=== PATIENT | female | born 1965 | race American Indian/Alaskan Native ===

== ENCOUNTER 2019-05-09 00:12 | Inpatient (IN) | payer OTHER ==
--- NOTE | 2019-05-09 00:21 | Emergency Department Report ---
ED Neuro Deficit HPI - General Stated Complaint: STROKE Time Seen by Provider: 05/09/19 00:15 - History of Present Illness Initial Comments: Patient is 53 years old female with history of hypertension. Patient presented to the ER via EMS for evaluation of possible stroke. Patient stated that she went to bed at 10:00 and around 10:30 when she tried to change her position she felt however left side is heavy and then noticed that she is having difficulty finding words and speaking. Patient immediately examined by me on EMS stretcher and code stroke initiated. Patient immediately moved to CT scan suite for emergent CT bran. Telemetry neurology immediately consulted. -: Sudden Location: speech, left arm, left leg Presenting Symptoms: Present: Weak/Paralyzed One Side, Unable to Speak Clearly History of same: No Place: home - Related Data Home Medications: Previous Rx's Medication Instructions Recorded Last Taken Type Aspirin 81 mg PO QDAY #30 tablet 05/10/19 Unknown Rx AtorvaSTATin [Lipitor] 40 mg PO QHS #30 tablet 05/10/19 Unknown Rx Bisacodyl [Dulcolax] 5 mg PO DAILY PRN #30 tab 05/10/19 Unknown Rx Losartan [Cozaar] 50 mg PO QDAY #30 tablet 05/10/19 Unknown Rx Allergies/Adverse Reactions: Allergies Allergy/AdvReac Type Severity Reaction Status Date / Time cephalexin [From Keflex] Allergy Unknown Hives Verified 05/10/19 04:54 ED Review of Systems ROS: Stated complaint: STROKE Other details as noted in HPI Comment: All other systems reviewed and negative Constitutional: denies: chills, fever Respiratory: denies: cough, shortness of breath, SOB with exertion Cardiovascular: denies: chest pain, palpitations Gastrointestinal: denies: abdominal pain, nausea, vomiting, diarrhea, constipation, hematemesis, melena, hematochezia Musculoskeletal: denies: back pain Neurological: weakness, numbness. denies: headache, paresthesias, confusion, abnormal gait ED Past Medical Hx - Medications Home Medications: Home Medications Medication Instructions Recorded Confirmed Last Taken Type Aspirin 81 mg PO QDAY #30 tablet 05/10/19 Unknown Rx AtorvaSTATin [Lipitor] 40 mg PO QHS #30 tablet 05/10/19 Unknown Rx Bisacodyl [Dulcolax] 5 mg PO DAILY PRN #30 tab 05/10/19 Unknown Rx Losartan [Cozaar] 50 mg PO QDAY #30 tablet 05/10/19 Unknown Rx ED Neuro Physical Exam - General General appearance: alert, in no apparent distress Suspected Stroke: Yes - Head Head exam: Present: atraumatic, normocephalic, normal inspection - Eye Eye exam: Present: normal appearance, PERRL - ENT ENT exam: Present: normal exam, normal orophraynx, mucous membranes moist - Neck Neck exam: Present: normal inspection, full ROM. Absent: tenderness, meningismus, lymphadenopathy, thyromegaly - Respiratory Respiratory exam: Present: normal lung sounds bilaterally - Cardiovascular Cardiovascular Exam: Present: regular rate, normal rhythm, normal heart sounds - GI/Abdominal GI/Abdominal exam: Present: soft, normal bowel sounds. Absent: distended, tenderness, guarding, rebound, rigid, organomegaly, mass, bruit, pulsatile mass, hernia - Extremities Exam Extremities exam: Present: normal inspection, full ROM, normal capillary refill. Absent: pedal edema, calf tenderness - Back Exam Back exam: Present: normal inspection, full ROM. Absent: CVA tenderness (R), CVA tenderness (L), paraspinal tenderness, vertebral tenderness - Neurological Exam Neurological exam: Present: alert, oriented X3 - NIHSS Assessment Interval: Baseline 1a. Level of Consciousness: alert/keenly responsive 1b. LOC Questions: answers both correctly 1c. LOC Commands: performs tasks correctly 2. Best Gaze: normal 3. Visual: no visual loss 4. Facial Palsy: minor paralysis 5b. Motor Arm Right: no drift 5a. Motor Arm Left: drift 6a. Motor Leg Left: drift 6b. Motor Leg Right: no drift 7. Limb Ataxia: absent 8. Sensory: mild/moderate sensory loss 9. Best Language: mild/moderate aphasia 10. Dysarthria: mild/moderate dysarthria 11. Extinction/Inattention: no abnormality Total Score: 6 Stroke Severity: Moderate Stroke - Psychiatric Psychiatric exam: Present: normal mood - Skin Skin exam: Present: warm, intact, normal color ED Course Vital Signs 05/09/19 05/09/19 05/09/19 00:19 00:43 00:45 Temperature 98.1 F Pulse Rate 87 86 Respiratory 18 14 12 Rate Blood Pressure 197/121 Blood Pressure [Left] O2 Sat by Pulse 100 Oximetry 05/09/19 05/09/19 05/09/19 00:47 00:49 00:51 Temperature Pulse Rate 84 83 80 Respiratory 19 13 16 Rate Blood Pressure Blood Pressure [Left] O2 Sat by Pulse Oximetry 05/09/19 05/09/19 05/09/19 01:00 01:15 01:30 Temperature Pulse Rate 84 76 Respiratory 25 H 18 19 Rate Blood Pressure 164/101 164/101 127/83 Blood Pressure [Left] O2 Sat by Pulse Oximetry 05/09/19 05/09/19 05/09/19 01:45 02:00 02:15 Temperature Pulse Rate 85 Respiratory 18 11 L 19 Rate Blood Pressure 95/73 132/90 136/89 Blood Pressure [Left] O2 Sat by Pulse Oximetry 05/09/19 05/09/19 05/09/19 02:30 02:45 03:00 Temperature Pulse Rate 79 76 75 Respiratory 12 19 18 Rate Blood Pressure 136/89 147/92 137/80 Blood Pressure [Left] O2 Sat by Pulse Oximetry 05/09/19 05/09/19 05/09/19 03:04 03:15 03:30 Temperature Pulse Rate 76 77 Respiratory 16 17 17 Rate Blood Pressure 123/76 123/79 Blood Pressure [Left] O2 Sat by Pulse Oximetry 05/09/19 05/09/19 05/09/19 03:45 04:00 04:15 Temperature Pulse Rate 86 79 77 Respiratory 16 15 12 Rate Blood Pressure 137/104 128/85 132/88 Blood Pressure [Left] O2 Sat by Pulse Oximetry 05/09/19 05/09/19 05/09/19 04:30 04:45 05:00 Temperature Pulse Rate Respiratory 20 16 15 Rate Blood Pressure 127/79 124/73 125/71 Blood Pressure [Left] O2 Sat by Pulse Oximetry 05/09/19 05/09/19 05/09/19 05:15 05:30 05:45 Temperature Pulse Rate Respiratory 20 16 23 Rate Blood Pressure 115/72 112/72 122/73 Blood Pressure [Left] O2 Sat by Pulse Oximetry 05/09/19 05/09/19 05/09/19 06:00 06:15 06:31 Temperature Pulse Rate Respiratory 15 35 H 16 Rate Blood Pressure 138/78 120/81 164/114 Blood Pressure [Left] O2 Sat by Pulse Oximetry 05/09/19 05/09/19 05/09/19 06:41 06:51 07:01 Temperature Pulse Rate Respiratory 13 16 13 Rate Blood Pressure 164/114 161/126 169/104 Blood Pressure [Left] O2 Sat by Pulse Oximetry 05/09/19 05/09/19 05/09/19 07:11 07:21 07:43 Temperature Pulse Rate Respiratory 18 9 L Rate Blood Pressure 169/104 154/110 135/114 Blood Pressure [Left] O2 Sat by Pulse Oximetry 05/09/19 05/09/19 05/09/19 08:57 09:00 09:15 Temperature Pulse Rate Respiratory 16 Rate Blood Pressure 166/91 153/88 150/95 Blood Pressure 150/95 [Left] O2 Sat by Pulse 97 Oximetry 05/09/19 05/09/19 05/09/19 09:30 09:45 10:00 Temperature Pulse Rate Respiratory Rate Blood Pressure 148/105 169/98 143/74 Blood Pressure [Left] O2 Sat by Pulse Oximetry 05/09/19 05/09/19 05/09/19 10:11 10:15 10:30 Temperature Pulse Rate 75 Respiratory 16 Rate Blood Pressure 143/74 144/74 148/78 Blood Pressure 148/78 [Left] O2 Sat by Pulse 98 Oximetry 05/09/19 05/09/19 05/09/19 10:45 11:00 11:15 Temperature Pulse Rate Respiratory Rate Blood Pressure 150/74 154/100 133/109 Blood Pressure [Left] O2 Sat by Pulse Oximetry 05/09/19 05/09/19 05/09/19 12:18 12:21 12:24 Temperature Pulse Rate 77 66 68 Respiratory 16 14 Rate Blood Pressure 167/112 167/112 Blood Pressure 166/97 [Left] O2 Sat by Pulse 95 Oximetry 05/09/19 05/09/19 05/09/19 12:30 12:41 12:51 Temperature Pulse Rate 65 66 79 Respiratory 19 19 21 Rate Blood Pressure 160/98 160/98 173/98 Blood Pressure [Left] O2 Sat by Pulse Oximetry 05/09/19 05/09/19 05/09/19 13:01 13:11 13:12 Temperature Pulse Rate 73 67 Respiratory 12 17 Rate Blood Pressure 168/115 168/115 Blood Pressure 168/115 [Left] O2 Sat by Pulse Oximetry 05/09/19 05/09/19 05/09/19 13:21 13:31 13:41 Temperature Pulse Rate 74 58 L 62 Respiratory 16 16 22 Rate Blood Pressure 177/120 177/120 168/129 Blood Pressure [Left] O2 Sat by Pulse Oximetry 05/09/19 05/09/19 05/09/19 13:51 14:01 14:11 Temperature Pulse Rate 56 L 63 72 Respiratory 21 15 26 H Rate Blood Pressure 172/96 154/127 154/127 Blood Pressure [Left] O2 Sat by Pulse Oximetry - Lab Data Result diagrams: 05/09/19 00:45 05/09/19 00:45 Lab Results 05/09/19 05/09/19 05/09/19 Range/Units 00:45 00:45 00:45 WBC 5.1 (4.5-11.0) K/mm3 RBC 4.82 (3.65-5.03) M/mm3 Hgb 16.0 H (10.1-14.3) gm/dl Hct 46.4 H (30.3-42.9) % MCV 96 (79-97) fl MCH 33 H (28-32) pg MCHC 35 H (30-34) % RDW 13.4 (13.2-15.2) % Plt Count 253 (140-440) K/mm3 Lymph % (Auto) 41.9 H (13.4-35.0) % [place] % (Auto) 7.6 H (0.0-7.3) % Eos % (Auto) 2.3 (0.0-4.3) % Baso % (Auto) 0.7 (0.0-1.8) % Lymph # 2.1 (1.2-5.4) K/mm3 [place] # 0.4 (0.0-0.8) K/mm3 Eos # 0.1 (0.0-0.4) K/mm3 Baso # 0.0 (0.0-0.1) K/mm3 Seg Neutrophils % 47.5 (40.0-70.0) % Seg Neutrophils # 2.4 (1.8-7.7) K/mm3 PT 12.3 (12.2-14.9) Sec. INR 0.94 (0.87-1.13) APTT 27.5 (24.2-36.6) Sec. Thrombin Time 16.2 (15.1-19.6) Sec. Sodium 141 (137-145) mmol/L Potassium 3.8 (3.6-5.0) mmol/L Chloride 102.3 (98-107) mmol/L Carbon Dioxide 24 (22-30) mmol/L Anion Gap 19 mmol/L BUN 7 (7-17) mg/dL Creatinine 0.6 L (0.7-1.2) mg/dL Estimated GFR > 60 ml/min BUN/Creatinine Ratio 12 % Glucose 104 H (65-100) mg/dL Calcium 9.3 (8.4-10.2) mg/dL Total Creatine Kinase 140 H (30-135) units/L CK-MB (CK-2) 2.5 (0.0-4.0) ng/mL CK-MB (CK-2) Rel Index 1.7 (0-4) Troponin T < 0.010 (0.00-0.029) ng/mL Triglycerides (2-149) mg/dL Cholesterol (50-199) mg/dL LDL Cholesterol Direct (50-130) mg/dL HDL Cholesterol (40-59) mg/dL Cholesterol/HDL Ratio % Urine Color (Yellow) Urine Turbidity (Clear) Urine pH (5.0-7.0) Ur Specific [place] (1.003-1.030) Urine Protein (Negative) mg/dL Urine Glucose (UA) (Negative) mg/dL Urine Ketones (Negative) mg/dL Urine Blood (Negative) Urine Nitrite (Negative) Urine Bilirubin (Negative) Urine Urobilinogen (<2.0) mg/dL Ur Leukocyte Esterase (Negative) Urine WBC (Auto) (0.0-6.0) /HPF Urine RBC (Auto) (0.0-6.0) /HPF U Epithel Cells (Auto) (0-13.0) /HPF Urine Mucus /HPF Urine Opiates Screen Urine Methadone Screen Ur Barbiturates Screen Ur Phencyclidine Scrn Ur Amphetamines Screen U Benzodiazepines Scrn Urine Cocaine Screen U Marijuana (THC) Screen Drugs of Abuse Note 05/09/19 05/09/19 05/09/19 Range/Units 00:45 01:20 01:20 WBC (4.5-11.0) K/mm3 RBC (3.65-5.03) M/mm3 Hgb (10.1-14.3) gm/dl Hct (30.3-42.9) % MCV (79-97) fl MCH (28-32) pg MCHC (30-34) % RDW (13.2-15.2) % Plt Count (140-440) K/mm3 Lymph % (Auto) (13.4-35.0) % [place] % (Auto) (0.0-7.3) % Eos % (Auto) (0.0-4.3) % Baso % (Auto) (0.0-1.8) % Lymph # (1.2-5.4) K/mm3 [place] # (0.0-0.8) K/mm3 Eos # (0.0-0.4) K/mm3 Baso # (0.0-0.1) K/mm3 Seg Neutrophils % (40.0-70.0) % Seg Neutrophils # (1.8-7.7) K/mm3 PT (12.2-14.9) Sec. INR (0.87-1.13) APTT (24.2-36.6) Sec. Thrombin Time (15.1-19.6) Sec. Sodium (137-145) mmol/L Potassium (3.6-5.0) mmol/L Chloride (98-107) mmol/L Carbon Dioxide (22-30) mmol/L Anion Gap mmol/L BUN (7-17) mg/dL Creatinine (0.7-1.2) mg/dL Estimated GFR ml/min BUN/Creatinine Ratio % Glucose (65-100) mg/dL Calcium (8.4-10.2) mg/dL Total Creatine Kinase (30-135) units/L CK-MB (CK-2) (0.0-4.0) ng/mL CK-MB (CK-2) Rel Index (0-4) Troponin T (0.00-0.029) ng/mL Triglycerides 100 (2-149) mg/dL Cholesterol 196 (50-199) mg/dL LDL Cholesterol Direct 137 H (50-130) mg/dL HDL Cholesterol 55 (40-59) mg/dL Cholesterol/HDL Ratio 3.56 % Urine Color Straw (Yellow) Urine Turbidity Clear (Clear) Urine pH 6.0 (5.0-7.0) Ur Specific [place] 1.005 (1.003-1.030) Urine Protein <15 mg/dl (Negative) mg/dL Urine Glucose (UA) Neg (Negative) mg/dL Urine Ketones Neg (Negative) mg/dL Urine Blood Neg (Negative) Urine Nitrite Neg (Negative) Urine Bilirubin Neg (Negative) Urine Urobilinogen < 2.0 (<2.0) mg/dL Ur Leukocyte Esterase Neg (Negative) Urine WBC (Auto) < 1.0 (0.0-6.0) /HPF Urine RBC (Auto) 1.0 (0.0-6.0) /HPF U Epithel Cells (Auto) < 1.0 (0-13.0) /HPF Urine Mucus Few /HPF Urine Opiates Screen Presumptive negative Urine Methadone Screen Presumptive negative Ur Barbiturates Screen Presumptive negative Ur Phencyclidine Scrn Presumptive negative Ur Amphetamines Screen Presumptive negative U Benzodiazepines Scrn Presumptive negative Urine Cocaine Screen Presumptive negative U Marijuana (THC) Screen Presumptive negative Drugs of Abuse Note Disclamer - EKG Data -: EKG Interpreted by Ia EKG shows normal: sinus rhythm Rate: normal Interpretation: no acute changes - Radiology Data Radiology results: report reviewed Radiology Impressions Echocardiogram 05/09/19 02:41 Transthoracic Echocardiogram Indication: Stroke BP: 144/74 HR: 68 Conclusions *There is trace mitral regurgitation. *There is trace tricuspid regurgitation. *The left ventricular chamber size is normal. *Global left ventricular systolic function is normal. *The estimated ejection fraction is 55-60%. *Abnormal left ventricular diastolic filling is observed, consistent with impaired relaxation. *Right ventricular chamber size and systolic function are within normal limits. Findings Left Ventricle: The left ventricular chamber size is normal. Global left ventricular wall motion and contractility are within normal limits. Global left ventricular systolic function is normal. The estimated ejection fraction is 55-60%. Abnormal left ventricular diastolic filling is observed, consistent with impaired relaxation. Left Atrium: The left atrium is normal in size with no visual thrombus identified. Right Ventricle: The right ventricular chamber size and systolic function are within normal limits. Right Atrium: The right atrium appears normal. No atrial septal defected is demonstrated by agitated saline contrast. Aortic Valve: The aortic valve structure is normal. There is no evidence of aortic regurgitation. There is no evidence of aortic stenosis. Mitral Valve: The mitral valve leaflets appear normal. There is trace of mitral regurgitation. Tricuspid Valve: The tricuspid valve leaflets are normal. There is trace tricuspid regurgitation. The right ventricular systolic pressure is calculated at 16 mmHg. Pulmonic Valve: The pulmonic valve appears normal. There is trace pulmonic regurgitation. Pericardium: There is no pericardial effusion. Aorta: The aorta appears normal. There is no dilatation of the ascending aorta. There is no dilatation of the aortic root. Venous: The inferior vena cava appears normal. Contrast: Intravenous agitated saline contrast was used to assess intracardiac shunting. Measurements Chambers 2D Name Value Normal Range IVSd (2D) 1.04 cm (0.6 - 1.1) LVPWd (2D) 0.86 cm (0.6 - 1.1) LVIDd (2D) 4 cm (3.7 - 5.6) LVIDs (2D) 2.74 cm (2 - 3.8) LV FS (2D) 31.57 % - EF Teichholz (2D) 60.08 % - Ao root diameter (2D) 3 cm (2 - 3.7) Volumes/Mass Name Value Normal Range LA ESV SP 4CH (A/L) 28.76 ml - LA ESV SP 2CH (A/L) 29.18 ml - LA ESV BP (A/L) 29.94 ml - LA ESV SP 4CH (MOD) 25.7 ml - LA ESV SP 2CH (MOD) 28.45 ml - LV EDV SP 4CH (MOD) 79.44 ml - LV ESV SP 4CH (MOD) 30.69 ml - EF SP 4CH (MOD) 61.37 % - LV EDV SP 2CH (MOD) 58.31 ml - LV ESV SP 2CH (MOD) 26.05 ml - EF SP 2CH (MOD) 55.32 % - LV EDV BP 69.39 ml - LV ESV BP 28.48 ml - BP EF (MOD) 58.95 % - Diastolic/Systolic Function Name Value Normal Range MV E-wave Vmax 0.68 m/sec - MV deceleration time 164.6 msec - MV A-wave Vmax 0.87 m/sec - MV E:A ratio 0.78 ratio - Aortic Valve Name Value Normal Range AV Vmax 1.32 m/sec - AV VTI 27.41 cm - AV peak gradient 6.95 mmHg - AV mean gradient 3.46 mmHg - LVOT diameter 2.01 cm - LVOT Vmax 1.25 m/sec - LVOT VTI 26.45 cm - LVOT peak gradient 6.24 mmHg - LVOT mean gradient 2.98 mmHg - SV LVOT 83.95 ml - TORI (continuity Vmax) 3.01 cm2 - TORI (continuity VTI) 3.06 cm2 - Tricuspid Valve Name Value Normal Range TR Vmax 1.85 m/sec - TR peak gradient 13 mmHg - RAP 3 mmHg - RVSP 16 mmHg - Pulmonic Valve/Qp:Qs Name Value Normal Range PV Vmax 0.79 m/sec - PV peak gradient 2.51 mmHg - NE end-diastolic Vmax 1.14 m/sec - PV acceleration time 163.65 msec - Referring Physician: JULIANA GUEVARA Patient Name: TRIP BARON Date of : 1965 Sex: Female Report Date: 2019-05-09 Report Status: [place] [address] Cat Scan Report Signed Patient: TRIP BARON MR#: [id number] : 1965 Acct:[id number] Age/Sex: 53 / F ADM Date: 05/09/19 Loc: ED Attending Dr: Ordering Physician: JULIANA GUEVARA Date of Service: 05/09/19 Procedure(s): CT head/brain wo con Accession Number(s): [id number] cc: JULIANA GUEVARA CT head/brain wo con INDICATION: Stroke symptoms. TECHNIQUE: All CT scans at this location are performed using the following dose modulation technique: Automated exposure control. CONTRAST: None. COMPARISON: None available. FINDINGS: The ventricular system is appropriate in size and configuration without midline shift. Negative for mass, stroke or hemorrhage. Evaluation of the paranasal sinuses demonstrate complete opacification of the imaged portions of the right maxillary sinus with expansion and bony thickening. IMPRESSION: 1. Negative for acute stroke. 2. Chronic sinusitis right maxillary sinus. Code stroke: Called to Dr. Guevara at 12:04 AM central standard time. This was t he time of interpretation. Signer Name: Leon Rico MD Signed: 05/09/2019 1:05 AM Workstation Name: [id number] Transcribed By: ES Dictated By: Leon Rico MD Electronically Authenticated By: Leon Rico MD Signed Date/Time: 05/09/19104 DD/ 0 TD/TT: - Medical Decision Making Patient is 53 years old female with history of hypertension. Patient presented to the ER via EMS for evaluation of possible stroke. Patient stated that she went to bed at 10:00 and around 10:30 when she tried to change her position she felt however left side is heavy and then noticed that she is having difficulty finding words and speaking. Patient immediately examined by me on EMS stretcher and code stroke initiated. Patient immediately moved to CT scan suite for emergent CT bran. Telemetry neurology immediately consulted. I discussed the patient is from telemetry neurology. He indicated that patient is not a TPA candidate and advised to admit patient to hospital for stroke workup. I discussed the patient is Dr. Sary Gabriel, she agreed to admit the patient to medical service for further management. Critical Care Time: Yes Critical care time in (mins) excluding proc time.: 30 Critical care attestation.: If time is entered above; I have spent that time in minutes in the direct care of this critically ill patient, excluding procedure time. ED Disposition Clinical Impression: CVA (cerebral vascular accident), Malignant hypertension Disposition: OP ADMIT IP TO THIS HOSP Is pt being admited?: Yes Condition: Stable
--- NOTE | 2019-05-09 00:44 | Emergency Department Report ---
ED Neuro Deficit HPI - General Chief Complaint: Neuro Symptoms/Deficit Stated Complaint: STROKE Time Seen by Provider: 05/09/19 00:15 Source: patient, family, EMS Mode of arrival: Stretcher Limitations: No Limitations - History of Present Illness Initial Comments: [facility] Date of Service: 05/09/2019 00:17:09 Impression: RO Acute Ischemic Stroke HTN Comments: Patient presents with what appears to be predominantly left sided sensory loss, indicative of possible acute ischemic infarct. DD includes right thalamic lacune given the persistent hypertension , and less likely right parietal cortical infarct. She will need work up on the floor for further evaluation. CT head pending, if negative for hemorrhage, may start on ASA 325 mg daily antiplatelet therapy. Recommendations for inpatient work up otherwise as below. Mechanism of Stroke: Small Vessel Disease Metrics: Last Known Well: 05/08/2019 23:30:00 [facility] Notification Time: 05/09/2019 00:16:18 Arrival Time: 05/09/2019 00:20:14 Stamp Time: 05/09/2019 00:17:09 Time First Login Attempt: 05/09/2019 00:20:17 Video Start Time: 05/09/2019 00:20:17 Symptoms: left sided numbness and difficulty with word finding. NIHSS Start Assessment Time: 05/09/2019 00:25:00 Patient is not a candidate for tPA. ER physician not notified of the decision on thrombolytics management. Our recommendations are outlined below. Recommendations: Recommended Scan: MRI Head with and Without Contrast MRA Head Without Contrast MRA Neck with and Without Contrast Lipid Panel to Be Obtained, if Not Done in the Last Three Months Therapies: Physical Therapy, Occupational Therapy, Speech Therapy Assessment When Applicable Dysphaghia Screen: Swallow Evaluation, Bedside DVT prophylaxis: Choice of Primary Team SCDs, Pneumatic Compression Sign Out: Discussed with Emergency Department Provider History of Present Illness: Patient is a 54 years old Female. Patient was brought by EMS for symptoms of left sided numbness and difficulty with word finding. "I laid down to go to bed, and my left side I could not lift. " This was at about 1030 pm. She had difficulty with speaking at the time. She states that she has had improvement of all her symptoms at the current time, and continues to have left sided numbness. Examination: 1A: Level of Consciousness - Alert; keenly responsive + 0 1B: Ask Month and Age - Both Questions Right + 0 1C: Blink Eyes & Squeeze Hands - Performs Both Tasks + 0 2: Test Horizontal Extraocular Movements - Normal + 0 3: Test Visual Amaro - No Visual Loss + 0 4: Test Facial Palsy (Use Grimace if Obtunded) - Normal symmetry + 0 5A: Test Left Arm Motor Drift - No Drift for 10 Seconds + 0 5B: Test Right Arm Motor Drift - No Drift for 10 Seconds + 0 6A: Test Left Leg Motor Drift - No Drift for 5 Seconds + 0 6B: Test Right Leg Motor Drift - No Drift for 5 Seconds + 0 7: Test Limb Ataxia (FNF/Heel-Chin) - No Ataxia + 0 8: Test Sensation - Mild-Moderate Loss: Less Sharp/More Dull + 1 9: Test Language/Aphasia - Normal; No aphasia + 0 10: Test Dysarthria - Normal + 0 11: Test Extinction/Inattention - No abnormality + 0 NIHSS Score: 1 Patient was informed the Neurology Consult would happen via TeleHealth consult by way of interactive audio and video telecommunications and consented to receiving care in this manner. Due to the immediate potential for life-threatening deterioration due to underlying acute neurologic illness, I spent 35 minutes providing critical care. This time includes time for face to face visit via telemedicine, review of medical records, imaging studies and discussion of findings with providers, the patient and/or family. Dr Deepak Bullard [facility] Location: speech, left arm, left leg History of same: No Place: home - Related Data Allergies/Adverse Reactions: Allergies Allergy/AdvReac Type Severity Reaction Status Date / Time No Known Allergies Allergy Verified 05/09/19 00:21 ED Review of Systems ROS: Stated complaint: STROKE Other details as noted in HPI Constitutional: denies: chills, fever Respiratory: denies: cough, shortness of breath, SOB with exertion Cardiovascular: denies: chest pain, palpitations Gastrointestinal: denies: abdominal pain, nausea, vomiting, diarrhea, constipation, hematemesis, melena, hematochezia Musculoskeletal: denies: back pain Neurological: weakness, numbness. denies: headache, paresthesias, confusion, abnormal gait ED Past Medical Hx - Past Medical History Previous Medical History?: No - Surgical History Past Surgical History?: Yes Additional Surgical History: hand sx - Social History Smoking Status: Current Every Day Smoker Substance Use Type: Alcohol ED Neuro Physical Exam - General Limitations: No Limitations General appearance: alert, in no apparent distress Suspected Stroke: Yes - NIHSS Assessment Interval: Baseline 1a. Level of Consciousness: alert/keenly responsive 1b. LOC Questions: answers both correctly 1c. LOC Commands: performs tasks correctly 2. Best Gaze: normal 3. Visual: no visual loss 4. Facial Palsy: normal symmetrical movement 5b. Motor Arm Right: no drift 5a. Motor Arm Left: no drift 6a. Motor Leg Left: no drift 6b. Motor Leg Right: no drift 7. Limb Ataxia: absent 8. Sensory: mild/moderate sensory loss 9. Best Language: no aphasia 10. Dysarthria: normal 11. Extinction/Inattention: no abnormality Total Score: 1 Stroke Severity: Minor Stroke ED Course Vital Signs 05/09/19 05/09/19 05/09/19 00:19 00:43 00:45 Temperature 98.1 F Pulse Rate 87 86 Respiratory 18 14 12 Rate Blood Pressure 197/121 O2 Sat by Pulse 100 Oximetry 05/09/19 05/09/19 05/09/19 00:47 00:49 00:51 Temperature Pulse Rate 84 83 80 Respiratory 19 13 16 Rate Blood Pressure O2 Sat by Pulse Oximetry 05/09/19 01:00 Temperature Pulse Rate 87 Respiratory Rate Blood Pressure 169/101 O2 Sat by Pulse Oximetry - Lab Data Result diagrams: 05/09/19 00:45 05/09/19 00:45 Lab Results 05/09/19 05/09/19 05/09/19 Range/Units 00:45 00:45 00:45 WBC 5.1 (4.5-11.0) K/mm3 RBC 4.82 (3.65-5.03) M/mm3 Hgb 16.0 H (10.1-14.3) gm/dl Hct 46.4 H (30.3-42.9) % MCV 96 (79-97) fl MCH 33 H (28-32) pg MCHC 35 H (30-34) % RDW 13.4 (13.2-15.2) % Plt Count 253 (140-440) K/mm3 Lymph % (Auto) 41.9 H (13.4-35.0) % [place] % (Auto) 7.6 H (0.0-7.3) % Eos % (Auto) 2.3 (0.0-4.3) % Baso % (Auto) 0.7 (0.0-1.8) % Lymph # 2.1 (1.2-5.4) K/mm3 [place] # 0.4 (0.0-0.8) K/mm3 Eos # 0.1 (0.0-0.4) K/mm3 Baso # 0.0 (0.0-0.1) K/mm3 Seg Neutrophils % 47.5 (40.0-70.0) % Seg Neutrophils # 2.4 (1.8-7.7) K/mm3 PT 12.3 (12.2-14.9) Sec. INR 0.94 (0.87-1.13) APTT 27.5 (24.2-36.6) Sec. Thrombin Time 16.2 (15.1-19.6) Sec. Sodium 141 (137-145) mmol/L Potassium 3.8 (3.6-5.0) mmol/L Chloride 102.3 (98-107) mmol/L Carbon Dioxide 24 (22-30) mmol/L Anion Gap 19 mmol/L BUN 7 (7-17) mg/dL Creatinine 0.6 L (0.7-1.2) mg/dL Estimated GFR > 60 ml/min BUN/Creatinine Ratio 12 % Glucose 104 H (65-100) mg/dL Calcium 9.3 (8.4-10.2) mg/dL Total Creatine Kinase 140 H (30-135) units/L CK-MB (CK-2) 2.5 (0.0-4.0) ng/mL CK-MB (CK-2) Rel Index 1.7 (0-4) Troponin T < 0.010 (0.00-0.029) ng/mL Critical care attestation.: If time is entered above; I have spent that time in minutes in the direct care of this critically ill patient, excluding procedure time. ED Disposition Clinical Impression: CVA (cerebral vascular accident), Malignant hypertension Disposition: DC/TX- [facility] IP Is pt being admited?: Yes Condition: Stable Instructions: Hypertension (ED)
[2019-05-09] MEDS ORDERED: NORMODYNE IV ONE (00:47)
--- NOTE | 2019-05-09 00:57 | XRay Report ---
CHEST 1 VIEW INDICATION: stroke. COMPARISON: None. FINDINGS: Support devices: None. Heart: Within normal limits. Lungs/Pleura: No acute air space or interstitial disease. Additional findings: None. IMPRESSION: No acute abnormality. Signer Name: eLon Rico MD Signed: 05/09/2019 12:52 AM Workstation Name: [id number]
[2019-05-09 01:07] LABS: Red Blood Count 4.82 M/mm3 (3.65-5.03)
[2019-05-09 01:08] LABS: Hematocrit 46.4 % (30.3-42.9); Mean Corpuscular HGB Conc 35 % (30-34); Mean Corpuscular Volume 96 fl (79-97); Platelet Count 253 K/mm3 (140-440); Red Cell Distribution Width 13.4 % (13.2-15.2)
[2019-05-09 01:09] LABS: Basophils % (Auto) 0.7 % (0.0-1.8); Eosinophils % (Auto) 2.3 % (0.0-4.3); Lymphocytes % (Auto) 41.9 % (13.4-35.0); Monocytes % (Auto) 7.6 % (0.0-7.3)
[2019-05-09 01:10] LABS: Eosinophils # (Auto) 0.1 K/mm3 (0.0-0.4); Lymphocytes # (Auto) 2.1 K/mm3 (1.2-5.4); Monocytes # (Auto) 0.4 K/mm3 (0.0-0.8)
--- NOTE | 2019-05-09 01:10 | Cat Scan Report ---
CT head/brain wo con INDICATION: Stroke symptoms. TECHNIQUE: All CT scans at this location are performed using the following dose modulation technique: Automated exposure control. CONTRAST: None. COMPARISON: None available. FINDINGS: The ventricular system is appropriate in size and configuration without midline shift. Nega tive for mass, stroke or hemorrhage. Evaluation of the paranasal sinuses demonstrate complete opacifi cation of the imaged portions of the right maxillary sinus with expansion and bony thickening. IMPRESSION: 1. Negative for acute stroke. 2. Chronic sinusitis right maxillary sinus. Code stroke: Called to Dr. Martinez at 12:04 AM central standard time. This was the time of interpret ation. Signer Name: Leon Rico MD Signed: 05/09/2019 1:05 AM Workstation Name: [id number]
[2019-05-09 01:17] LABS: BUN/Creatinine Ratio 12; Blood Urea Nitrogen 7 mg/dL (7-17); Calcium 9.3 mg/dL (8.4-10.2); Creatine Kinase MB 2.5 ng/mL (0.0-4.0); Hemolysis Index 7; INR 0.94 (0.87-1.13); Partial Thromboplastin Time 27.5 Sec. (24.2-36.6)
[2019-05-09 01:19] LABS: Thrombin Time 16.2 Sec. (15.1-19.6)
[2019-05-09 01:46] LABS: Bilirubin,Urine NEG (Negative); Blood,Urine NEG (Negative); Color,Urine Straw (Yellow); Mucus,Urine FEW /HPF; Protein,Urine <15 mg/dL mg/dL (Negative); Urobilinogen,Urine < 2.0 mg/dL (<2.0); WBC,Urine < 1.0 /HPF (0.0-6.0)
[2019-05-09 01:59] LABS: Amphetamine Screen,Urine PRESUMPTIVE NEGATIVE; Benzodiazepines Screen,Urine PRESUMPTIVE NEGATIVE; Cannabinoid Screen,Urine PRESUMPTIVE NEGATIVE; Cocaine Screen,Urine PRESUMPTIVE NEGATIVE; Methadone Screen,Urine PRESUMPTIVE NEGATIVE; Opiate Screen,Urine PRESUMPTIVE NEGATIVE
[2019-05-09] MEDS ORDERED: TYLENOL PO PRN (02:39)
[2019-05-09] MEDS ORDERED: DULCOLAX PR PRN (02:39)
[2019-05-09] MEDS ORDERED: SODIUM CHLORIDE FLUSH SYRINGE 10 ML IV PRN (02:39)
[2019-05-09] MEDS ORDERED: ZOFRAN IV PRN (02:39)
[2019-05-09] MEDS ORDERED: MILK OF MAGNESIA PO PRN (02:39)
[2019-05-09] MEDS ORDERED: APRESOLINE IV PRN (02:42)
--- NOTE | 2019-05-09 02:42 | History and Physical Report ---
History of Present Illness Date of examination: 05/09/19 History of present illness: 53 -year-old woman with a history of borderline hypertension, not on any medication cost emergency room with complaints of left-sided numbness and weakness that started around 10:30p when she was awoken from sleep. Also stated that she had slurred speech. Her symptoms resolved after 45 minutes, she arrived in the emergency room, back to baseline eview Of Systems: Constitutional: no weight loss, fever, chills Ears, eyes, nose, mouth and throat: no nasal congestion, no nasal discharge, no sinus pressure, blurry vision, diplopia Neck: No neck pain or rigidity. Cardiovascular: No palpitations, chest pain Respiratory: No shortness of breath, cough Gastrointestinal: No hematochezia, abdominal pain Genitourinary : no dysuria, frequency , hematuria Musculoskeletal: no muscle ache , joint pain Integumentary: no rash, no pruritis Neurological:+parathesias, focal weakness Endocrine: no cold or heat intolerance, no polyuria or polydipsia Hematologic/Lymphatic: no easy bruising, no easy bleeding, no gland swelling Allergic/Immunologic: no urticaria, no angioedema. PAST MEDICAL HISTORY: borderline hypertension PAST SURGICAL HISTORY: hand, 3 FAMILY HISTORY:hypertension, diabetes SOCIAL HISTORY: +tobacco, no drugs, +alcohol Medications and Allergies Allergies Allergy/AdvReac Type Severity Reaction Status Date / Time No Known Allergies Allergy Verified 05/09/19 00:21 Exam - Physical Exam Narrative exam: General Apperance: The patient sitting in bed no acute distress HEENT: Normocephalic, atraumatic. Pupils equally round and reactive to light, extraocular movement intact, and no sclericterus or JVD or thyromegaly or nodule. Neck supple, no carotid bruit, mucous membranes moist, no exudate or erythema Heart: S1-S2, regular is rhythm Lungs: Clear to auscultation bilaterally, breathing comfortable Abdomen: Positive bowel sounds, soft, nontender, nondistended, no organomegaly Extremities: No edema cyanosis clubbing Skin: no rash, nodule, warm and dry Neuro:CN 2 -12 intact, motor/sensory intact, speech is fluent - Constitutional Vitals: Temp Pulse Resp BP Pulse Ox 98.1 F 87 16 169/101 100 05/09/19 00:19 05/09/19 01:00 05/09/19 00:51 05/09/19 01:00 05/09/19 00:19 Results - Labs CBC & Chem 7: 05/09/19 00:45 05/09/19 00:45 Labs: Abnormal lab results 05/09/19 05/09/19 Range/Units 00:45 00:45 Hgb 16.0 H (10.1-14.3) gm/dl Hct 46.4 H (30.3-42.9) % MCH 33 H (28-32) pg MCHC 35 H (30-34) % Lymph % (Auto) 41.9 H (13.4-35.0) % [place] % (Auto) 7.6 H (0.0-7.3) % Creatinine 0.6 L (0.7-1.2) mg/dL Glucose 104 H (65-100) mg/dL Total Creatine Kinase 140 H (30-135) units/L - Imaging and Cardiology EKG: image reviewed Chest x-ray: report reviewed CT Scan - head: report reviewed Assessment and Plan Assessment TIA Hypertension malignant Plan Obtain MRI of the head and neck, echo Do neuro checks, sunscreen Start aspirin, statin Consult neurology, PT, OT IV hydralazine as needed for blood pressure control DVT prophylaxis
[2019-05-09] MEDS ORDERED: TYLENOL ONE (06:35)
--- NOTE | 2019-05-09 07:36 | Event Note ---
Date: 05/09/19 Pt was was admitted today was seen and examined. Reviewed lab and management plan. Will continue with the same
[2019-05-09] MEDS ORDERED: ATIVAN IV ONE (08:03)
[2019-05-09] MEDS ORDERED: ATIVAN ONE (08:08)
--- NOTE | 2019-05-09 09:14 | Magnetic Resonance Report ---
MRI BRAIN WITHOUT CONTRAST, MRA HEAD WITHOUT CONTRAST INDICATION / CLINICAL INFORMATION: stroke. Symptoms include left-sided weakness and slurred speech. TECHNIQUE: Multiplanar, multi sequential MRI images of the brain. Routine MRA of the head is performed. 3-D/MIP reformats postprocessed. COMPARISON: Head CT on 05/09/2019. FINDINGS: MR BRAIN: BRAIN / INTRACRANIAL CONTENTS: No acute ischemia, acute hemorrhage, mass effect, midline shift, or hy drocephalus. No chronic infarct or significant atrophy. No significant demyelinating changes. CRANIOCERVICAL JUNCTION: No significant abnormality. VASCULAR FLOW-VOIDS: No significant abnormality. ORBITS: No significant abnormality of visualized orbits. SINUSES / MASTOIDS: There is stable moderate mucosal thickening in the right maxillary sinus. ADDITIONAL FINDINGS: None. MRA HEAD: Intracranial vertebral arteries: There is no significant flow in the visualized intracranial right ve rtebral artery. The left vertebral artery appears dominant and demonstrates normal flow. Basilar artery: No significant abnormality. Posterior cerebral arteries: No significant abnormality. Intracranial internal carotid arteries: No significant abnormality. Anterior cerebral arteries: No significant abnormality. Middle cerebral arteries: No significant abnormality. Additional findings: None. IMPRESSION: 1. No acute infarct or other acute brain parenchymal abnormality. 2. There is no flow signal in the intracranial right artery. This may be due to slow flow or diminuti ve artery with the right vertebral artery ending in the right PICA (this would be a developmental jamey iant), but a right vertebral artery occlusion is not excluded. Evaluation of the right vertebral major ry with CTA of the head which may be more sensitive for a diminutive nondominant right vertebral major ry should be considered. Signer Name: Christiano King MD Signed: 05/09/2019 9:09 AM Workstation Name: [id number]
[2019-05-09] MEDS ORDERED: LOVENOX SUB-Q ONE (10:00)
[2019-05-09] MEDS ORDERED: COZAAR ONE (10:01)
[2019-05-09] MEDS ORDERED: ASPIRIN ONE (10:01)
[2019-05-09] MEDS: COZAAR PO SCH (10:11)
[2019-05-09] MEDS: ASPIRIN PO SCH (10:11)
[2019-05-09] MEDS: LOVENOX SUB-Q SCH (10:12)
[2019-05-09 13:03] LABS: Chol/HDL Ratio 3.56 %
--- NOTE | 2019-05-09 14:19 | Consultation ---
History of Present Illness Consult date: 05/09/19 Reason for Consult: TIA Chief complaint: left sided weakness History of present illness: Patient is a 53-year-old woman with a history of hypertension. When going to sleep last night an approximate 10:30 PM, the patient was turning in bed, noted that her left side was weak. She felt that she is not able to move it at all. Patient also noted that she had difficulty with word finding. She came to the ER, however her symptoms were rapidly improving, and when she was evaluated by telemetry stroke, it was felt that she was not a TPA candidate as her only deficit of that time was mild sensory deficit on the left. Patient's symptoms now have resolved, however she continues to complain of mild pain in the left lo wer extremity. Past History Past Medical History: hypertension Social history: lives with family, smoking Family history: no significant family history Medications and Allergies Allergies Allergy/AdvReac Type Severity Reaction Status Date / Time No Known Allergies Allergy Verified 05/09/19 00:21 Home Medications Medication Instructions Recorded Confirmed Last Taken Type No Known Home Medications [No 05/09/19 05/09/19 Unknown History Reported Home Medications] Active Meds: Active Medications Acetaminophen (Tylenol) 650 mg PO Q4H PRN PRN Reason: Pain, Mild (1-3) Last Admin: 05/09/19 06:35 Dose: 650 mg Documented by: Aspirin (Aspirin) 325 mg PO QDAY [facility] Last Admin: 05/09/19 10:11 Dose: 325 mg Documented by: Atorvastatin Calcium (Lipitor) 40 mg PO QHS [facility] Bisacodyl (Dulcolax) 10 mg NE QDAY PRN PRN Reason: Constipation Enoxaparin Sodium (Lovenox) 40 mg SUB-Q QDAY [facility] Last Admin: 05/09/19 10:12 Dose: 40 mg Documented by: Hydralazine HCl (Apresoline) 5 mg IV Q6H PRN PRN Reason: Hypertension Losartan Potassium (Cozaar) 50 mg PO QDAY [facility] Last Admin: 05/09/19 10:11 Dose: 50 mg Documented by: Magnesium Hydroxide (Milk Of Magnesia) 30 ml PO Q4H PRN PRN Reason: Constipation Ondansetron HCl (Zofran) 4 mg IV Q8H PRN PRN Reason: Nausea And Vomiting Sodium Chloride (Sodium Chloride Flush Syringe 10 Ml) 10 ml IV PRN PRN PRN Reason: LINE FLUSH Review of Systems All systems: negative Neurological: weakness, parathesias, change in speech Physical Examination - Vital Signs Vital Signs: Vital Signs Temp Pulse Resp BP Pulse Ox 98.1 F 87 18 197/121 100 05/09/19 00:19 05/09/19 00:19 05/09/19 00:19 05/09/19 00:05/09/19 00:19 - Constitutional General appearance: comfortable - EENT EENT: Present: ATNC, PERRL, mucous membranes moist, hearing intact, vision intact - Respiratory Respiratory: Present: lungs clear, normal breath sounds - Cardiovascular Cardiovascular: Present: regular rate, normal S1, normal S2 Extremities: Present: no peripheral edema bilatateraly, no clubbing, cyanosis - Gastrointestinal Gastrointestinal: Present: normoactive bowel sounds, soft, non-tender - Integumentary Integumentary: Present: normal - Neurologic Cranial nerve examination: PERRL, EOMI, VFF, V1/V2/V3 grossly intact, face symmetric, tongue midline, intact shoulder shrug Speech examination: intact Sensorimotor examination: intact Motor examination - right side: 5/5: biceps, triceps, wrist flexion, wrist extension, vessel engineer, hip flexors, knee extensors, dorsiflexion, toe extension (EHL), plantarflexion Motor examination - left side: 4/5: hip flexors (limited due to pain), 5/5: biceps, triceps, wrist flexion, wrist extension, vessel engineer, knee extensors, dorsiflexion, toe extension (EHL), plantarflexion Detailed sensory examination: intact, light touch Reflexes: 2+: ankle, bicep, knee, tricep Cerebellar examination: other (b/l intact to FTN and HTS) - Musculoskeletal Musculoskeletal: Present: no fluid collection, normal range of motion - Psychiatric Psychiatric: Present: mood/affect appropriate - Level of Consciousness 1a. Level of Consciousness: alert/keenly responsive - LOC Questions 1b. LOC Questions: answers both correctly - LOC Command 1c. LOC Commands: performs tasks correctly - Best Gaze 2. Best Gaze: normal - Visual 3. Visual: no visual loss - Facial Palsy 4. Facial Palsy: normal symmetrical movement - Motor Arm 5a. Motor Arm Left: no drift 5b. Motor Arm Right: no drift - Motor Leg 6a. Motor Leg Left: no drift 6b. Motor Leg Right: no drift - Limb Ataxia 7. Limb Ataxia: absent - Sensory 8. Sensory: normal - Best Language 9. Best Language: no aphasia - Dysarthria 10. Dysarthria: normal - Extinction and Inattention 11. Extinction/Inattention: no abnormality - Scoring Total Score: 0 Stroke Severity: No Stroke Symptoms Results - Laboratory Findings CBC and BMP: 05/09/19 00:45 05/09/19 00:45 Abnormal Lab Findings: Abnormal Labs 05/09/19 05/09/19 05/09/19 00:45 00:45 00:45 Hgb 16.0 H Hct 46.4 H MCH 33 H MCHC 35 H Lymph % (Auto) 41.9 H [place] % (Auto) 7.6 H Creatinine 0.6 L Glucose 104 H Total Creatine Kinase 140 H LDL Cholesterol Direct 137 H Assessment and Plan Patient is a 53-year-old woman with a history of hypertension, who p/w left- sided weakness, difficulty with word finding, and left-sided numbness. Symptoms of no resolved. According the patient's clinical findings, it is likely that the patient is had a TIA. Imaging studies have not revealed any evidence of an acute ischemic stroke. Of note, the patient has a history of hypertension, and states that she has been noncompliant with anti-HTN medications. Plan: 1. TIA: - MRI brain did not reveal any acute abnormality. MRA head did not reveal any evidence of significant stenosis. Check carotid Doppler. - Echocardiogram: EF 55-60%, left atrium normal size, bubble study negative. - Continue patient on aspirin 81 mg daily LDL currently 137. Start patient on atorvastatin 40 mg daily area and LDL goal less than 70. Discussed risk factors of this medication and patient agreed to start medication. PT/OT/ST DVT prophylaxis: Recommend Lovenox. Telemetry monitoring while in-house. 2. Hypertension: Recommend BP target of normotension, as patient is now returned to baseline. - Will continue to follow patient. Jose Vargas MD Neurology
--- NOTE | 2019-05-09 16:19 | Vascular Lab Report ---
Bilateral Carotid Doppler Ultrasound INDICATION : TIA, altered mental status TECHNIQUE: Grayscale and color Doppler imaging performed through the neck. COMPARISON: None FINDINGS: Right: There is no significant atherosclerotic disease. Peak systolic velocity in the CCA is 64 cm/ s with end-diastolic velocity of 16 cm/s. Peak systolic velocity in the proximal ICA is 74 cm/s with end-diastolic velocity of 11 cm/s. ICA to CCA ratio is less than 2. There is antegrade flow in the E CA and the vertebral artery. Left: There is no significant atherosclerotic disease. Peak systolic velocity in the CCA is 46 cm/s w ith end-diastolic velocity of 16 cm/s. Peak systolic velocity in the proximal ICA is 114 cm/s with en d-diastolic velocity of 33 cm/s. ICA to CCA ratio is less than 2. There is antegrade flow in the ECA and the vertebral artery. IMPRESSION: No hemodynamically significant stenosis by NASCET criteria. Signer Name: Best Werner MD Signed: 05/09/2019 4:15 PM Workstation Name: [id number]
[2019-05-09] MEDS ORDERED: PRAVACHOL PO SCH (22:00)
[2019-05-10] MEDS: COZAAR PO SCH (10:01)
[2019-05-10] MEDS: ASPIRIN PO SCH (10:01)
[2019-05-10 10:02] VITALS: BP 146/90
[2019-05-10] MEDS: LOVENOX SUB-Q SCH (10:02)
--- NOTE | 2019-05-10 10:12 | Discharge Summary ---
Providers - Providers Date of Admission: 05/09/19 03:35 Date of discharge: 05/10/19 Attending physician: BRITTANI ALFARO 05/09/19 02:39 Occupational Therapy Evaluate and Treat [CONS] Routine Comment: Reason For Exam: Neuro deficits Physical Therapy Evaluation and Treat [CONS] Routine Comment: Reason For Exam: Neuro deficits 05/09/19 06:20 Consult to Physician [CONS] Routine Comment: Consulting Provider: KARIS ROBERTS Physician Instructions: Reason For Exam: tia Primary care physician: [employer] Hospitalization Reason for admission: TIA, malignant hypertension Condition: Stable Pertinent studies: CT scan of the brain was unremarkable MRI of the brain showed no acute ischemic changes Echocardiogram showed ejection fraction 55-60% with normal LV function Procedures: None Hospital course: 53 -year-old woman with a history of borderline hypertension, not on any medication cost emergency room with complaints of left-sided numbness and weakness that started around 10:30p when she was awoken from sleep. Also stated that she had slurred speech. Her symptoms resolved after 45 minutes, she arrived in the emergency room, back to baseline. CT scan of the brain and MRI were unremarkable. The patient improved appreciably well. She is been discharged today to follow up with primary care physician. Disposition: -01 TO HOME OR SELFCARE Time spent for discharge: 32 min - Discharge Diagnoses (1) TIA (transient ischemic attack) Status: Acute (2) Malignant hypertension Status: Acute Core Measure Documentation - Palliative Care Palliative Care/ Comfort Measures: Not Applicable - Core Measures Any of the following diagnoses?: none Exam - Physical Exam Narrative exam: Constitutional: Well-nourished well-developed. In no distress Head: Normocephalic atraumatic Eyes: Pupils are equal round and reactive to light Nose: No enlarged turbinates, no septal deviation. Mouth: Moist mucous membranes. Neck: Supple no thyromegaly. No bruit. No JVD Heart: Regular rate and rhythm, S1-S2 normal. No rubs murmurs or gallop Lungs: Clear to auscultation bilaterally. no rales or rhonchi Abdomen: Soft, nontender. Bowel sound are present. Extremities: No edema, no cyanosis, no clubbing. Neuro: Alert oriented Oriented x3. No focal sensory or motor deficit. Skin: No rashes or hyperpigmented spots Musculoskeletal system: No joint pain or swelling Hematological: No petechia or subcutanous hemorrhages. Immunological: No multiple septic spots on the skin Lymphatic: No generalized lymphadenopathy Psychiatry: Euthymic. Calm. - Constitutional Vitals: Temp Pulse Resp BP Pulse Ox 98.3 F 60 18 159/96 97 05/10/19 09:25 05/10/19 09:25 05/10/19 09:25 05/10/19 09:25 05/10/19 09:25 Plan Weight Bearing Status: Weight Bear as Tolerated Diet: low salt Follow up with: BRITTANI ALFARO MD [Staff Physician] - 05/15/19 Prescriptions: Aspirin 81 mg PO QDAY #30 tablet Losartan [Cozaar] 50 mg PO QDAY #30 tablet Bisacodyl [Dulcolax] 5 mg PO DAILY PRN #30 tab PRN Reason: Constipation AtorvaSTATin [Lipitor] 40 mg PO QHS #30 tablet
== END 2019-05-10 12:39 | disposition home or self-care (01) | DRG 69 ==
LOC: ED 00:12 → 4A 03:35
PROVIDERS: ADMIT Internal Medicine; ATTEND Family Medicine
DX: G45.9 Transient cerebral ischemic attack, unspecified (principal); I10 Essential (primary) hypertension; F17.200 Nicotine dependence, unspecified, uncomplicated; Z91.14 Patient's other noncompliance with medication regimen; Z82.49 Family history of ischemic heart disease and other diseases of the circulatory system; Z83.3 Family history of diabetes mellitus; Z72.89 Other problems related to lifestyle; Z79.82 Long term (current) use of aspirin; Z79.899 Other long term (current) drug therapy
CPT/HCPCS: 36415; 70450; 70544; 70551; 71045; 80048; 80061; 80307; 81001; 82550; 82553; 83036; 84484; 85025; 85610; 85670; 85730; 93005; 93010; 93306; 93880; 99406; G0378; A9270-GY; J1650; J2060